=== PATIENT | female | born 1965 | race African-American/Black ===

== ENCOUNTER 2016-09-18 08:44 | Emergency (ER) | payer OTHER ==
[~2016-09-18] VITALS: Wt 59.5 kg
[2016-09-18] MEDS ORDERED: CLOT30CR24 TOP (09:06)
[2016-09-18] MEDS ORDERED: HC30CR25 TOP (09:07)
--- NOTE | 2016-09-18 09:51 | ERD ---
ER Documentation Chief Complaint Date/Time DATE: 09/18/16 TIME: 09:49 Chief Complaint RASH X1 YEAR HPI Patient is a 51-year-old homeless female with no past medical history who presents to the ED with a rash on her feet hands and back for the last year. She states that she has tried creams at home, unsure of the names of creams which have helped minimally. However she states that she missed her doctor's appointment yesterday and would like a refill on creams until she sees her doctor in 2 weeks. She states that the rash and dryness on her hands are itchy and slightly burning. With no pain. Denies fever or chills. Denies abdominal pain, nausea, vomiting or diarrhea. Denies leg pain or swelling. Denies cough or shortness of breath. No other complaints. No history of STDs. ROS All systems reviewed and are negative except as per history of present illness. Medications Home Meds Active Scripts Hydrocortisone* Topical (Hydrocortisone* Topical) 2.5%-28.3 Gm Cream..g., 1 APPLIC TOP BID, #1 TUB Prov:OPAL KOCH PA-C 09/18/16 Clotrimazole* (Clotrimazole* AF) 1% - 30 Gm Cream.gm., 1 APPLIC TOP BID for 7 Days, TUB Prov:OPAL KOCH PA-C 09/18/16 Allergies Allergies: Coded Allergies: No Known Drug Allergies (Verified Allergy, 12/31/10) PMhx/Soc Medical and Surgical Hx: pt denies Medical Hx History of Surgery: Yes (PARTIAL HYSTERECTOMY, C SECTION) Anesthesia Reaction: No Hx Neurological Disorder: No Hx Respiratory Disorders: No Hx Cardiac Disorders: No Hx Psychiatric Problems: No Hx Miscellaneous Medical Probl: No Hx Alcohol Use: No Hx Substance Use: Yes (MARIJUANA) Hx Tobacco Use: No Smoking Status: Current every day smoker FmHx Family History: No coronary disease, No diabetes, No other Physical Exam Vitals Vital Signs Date Time Temp Pulse Resp B/P Pulse Ox O2 Delivery O2 Flow Rate FiO2 09/18/16 08:46 96.8 61 17 119/72 100 Physical Exam GENERAL: Well-developed, well-nourished female. Appears in no acute distress. HEAD: Normocephalic, atraumatic. EYES: Pupils are equally reactive bilaterally. EOMs grossly intact. No conjunctival erythema. ENT: Moist mucous membranes. No uvula deviation. No kissing tonsils. No exudates. NECK: Supple. No lymphadenopathy or thyromegaly. No meningismus. negative kernig. negative brudinski. LUNG: Clear to auscultation bilaterally. No rhonchi, wheezing, rales or coarse breath sounds. HEART: Regular rate and rhythm. No murmurs, rubs or gallops. Extremities: Equal pulses bilaterally. No peripheral clubbing, cyanosis or edema. No unilateral leg swelling. NEUROLOGIC: Alert and oriented. Moving all four extremities. 5/5 strength in all extremities. Normal speech. Steady gait. SKIN: Normal color. Warm and dry. Dry rash on hands and feet and back. With skin peeling. No signs of infection. No erythema.. Capillary refill < 2 seconds Procedures/MDM ER COURSE: I kept the patient and/or family informed of laboratory and diagnostic imaging results throughout the emergency room course. MEDICAL DECISION MAKING: This is a 51-year-old female who presents with rash on her hands, feet and back. Vital signs were reviewed. Patient is afebrile. Patient is not hypoxic. Patient is not toxic or ill-appearing. Patient has rash of unknown etiology. Patient was unsure of names of creams she has used. Low suspicion for necrotizing fasciitis, SJS, toxic epidermal necrolysis, Kawasaki, erythema multiforme, gangrene, scarlet fever, meningococcemia, sepsis, anaphylaxis, sepsis, deep space infection, or foreign body. I will be treating the patient with hydrocortisone and clotrimazole and to follow-up with her primary care as scheduled. DISCHARGE: At this time, patient is stable for discharge and outpatient management with no new complaints during the ER course. Patient was sent home with clotrimazole and hydrocortisone cream. Patient will be discharged home with instructions to recheck for new or worsening symptoms such as fever, nausea, weakness, LOC and to follow up with primary care in the next 1-2 days. Patient was advised to return to the ER for any new or worsening symptoms. Plan was discussed and patient and/or family understands and agrees. Home instructions were given. Departure Diagnosis: Primary Impression: Rash Condition: Stable Patient Instructions: Contact Dermatitis Referrals: [facility] YOU HAVE RECEIVED A MEDICAL SCREENING EXAM AND THE RESULTS INDICATE THAT YOU DO NOT HAVE A CONDITION THAT REQUIRES URGENT TREATMENT IN THE EMERGENCY DEPARTMENT. FURTHER EVALUATION AND TREATMENT OF YOUR CONDITION CAN WAIT UNTIL YOU ARE SEEN IN YOUR DOCTORS OFFICE WITHIN THE NEXT 1-2 DAYS. IT IS YOUR RESPONSIBILITY TO MAKE AN APPOINTMENT FOR FOLOW-UP CARE. IF YOU HAVE A PRIMARY DOCTOR --you should call your primary doctor and schedule an appointment IF YOU DO NOT HAVE A PRIMARY DOCTOR YOU CAN CALL OUR PHYSICIAN REFERRAL HOTLINE AT IF YOU CAN NOT AFFORD TO SEE A PHYSICIAN YOU CAN CHOSE FROM THE FOLLOWING [facility] [address] [facility] [place] [facility] [address] [facility] [place] [facility] [address] [facility] [address] [facility]. [facility] [address] [facility]. [facility]. [address] Additional Instructions: Call your primary care doctor TOMORROW for an appointment during the next 1-2 days.See the doctor sooner or return here if your condition worsens before your appointment time. OPAL KOCH PA-C Sep 18, 2016 09:51
== END 2016-09-18 09:22 | disposition home or self-care (01) ==
LOC: FTE 08:44
DX: R21 Rash and other nonspecific skin eruption (principal); F17.210 Nicotine dependence, cigarettes, uncomplicated
CPT/HCPCS: 99283

== ENCOUNTER 2017-09-10 16:54 | Emergency (ER) | END 2017-09-10 19:36 | disposition home or self-care (01) ==

== ENCOUNTER 2017-12-04 08:33 | Emergency (ER) | END 2017-12-04 11:48 | disposition home or self-care (01) ==